=== PATIENT | female | born 1990 | race Caucasian/White ===

== ENCOUNTER 2016-07-01 19:49 | Emergency (ER) | payer MEDICAID, OTHER ==
[~2016-07-01] VITALS: Ht 154.9 cm; Wt 63.3 kg
[2016-07-01 19:57] VITALS: BP 114/77; PULSE 88; RESP 18; TEMP 97.8; O2SAT 88
[2016-07-01] MEDS ORDERED: CLON0.5T PO ×2 (20:30→21:38)
[2016-07-01] MEDS ORDERED: OMEP40CA2 PO (20:30)
[2016-07-01] MEDS ORDERED: MONT10TA2 PO (20:30)
[2016-07-01] MEDS ORDERED: NIFE20 PO (20:30)
[2016-07-01] MEDS ORDERED: PLAQ200T PO (20:30)
[2016-07-01] MEDS ORDERED: ZYRT10CA PO (20:30)
--- NOTE | 2016-07-01 21:13 | PD ---
HPI Chief Complaint: Medication Refill Request Time Seen by Provider: 21:13 Travel History International Travel<30 days: No Contact w/Intl Traveler<30days: No Traveled to known affect area: No History of Present Illness HPI 25-year-old female with history of lupus and bipolar presents to the ED for medication refill. Patient states that she's been out of her clonazepam for the last 8 days. She states that she's prescribed 5 mg at bedtime. States that she is visiting from [place], but unable to get her PCP to fill her prescription. PFSH Past Medical History ADHD: No Arthritis: Yes Cancer: No Diabetes: No Diminished Hearing: No Fibromyalgia: Yes Medical other: Yes (LUPUS) Psychiatric: Yes (BIPOLAR BY HX) Migraines: No Seizures: No Thyroid Disease: No Ulcer: No Tetanus Vaccination: < 5 Years Influenza Vaccination: Yes ?: Unknown LMP: 06 11 16 Past Surgical History Appendectomy: No Cholecystectomy: No Social History Alcohol Use: Yes (TRIED THREE TIMES) Tobacco Use: No Substance Use: No Allergies-Medications (Allergen,Severity, Reaction): Coded Allergies: Cola Drinks (Verified Allergy, Mild, 02/02/03) Colchicine (Verified Allergy, Unknown, SWELLING, HIVES, 07/01/16) Cymbalta (Verified Allergy, Unknown, SWELLING, HIVES, 07/01/16) Lyrica (Verified Allergy, Unknown, FEEL TERRIBLE, 07/01/16) Uncoded Allergies: COLADRINKS (Allergy, Mild, CAUSES NAUSEA, 02/02/03) ANTIBIOTICS ( ALL EXCEPT BACTRIM ) PER PT (Allergy, Unknown, HIVES, 07/01/16 ) Reported Meds & Prescriptions Reported Meds & Active Scripts Active Clonazepam 0.5 Mg Tab 0.5 Mg PO HS Reported Clonazepam 0.5 Mg Tab 0.5 Mg PO HS Singulair (Montelukast Sodium) 10 Mg Tab 10 Mg PO HS Omeprazole 40 Mg Cap 40 Mg PO DAILY Zyrtec Allergy (Cetirizine HCl) 10 Mg Cap 10 Mg PO DAILY Nifedipine 20 Mg Cap 30 Mg PO DAILY Plaquenil (Hydroxychloroquine Sulfate) 200 Mg Tab 200 Mg PO DAILY Take with food Physical Exam Narrative GENERAL: Well-nourished, well-developed disheveled white female in no acute distress. SKIN: Warm and dry. HEAD: Normocephalic. EYES: No scleral icterus. No injection or drainage. NECK: Supple, trachea midline. No JVD or lymphadenopathy. CARDIOVASCULAR: Regular rate and rhythm without murmurs, gallops, or rubs. RESPIRATORY: Breath sounds clear and equal bilaterally. No accessory muscle use. GASTROINTESTINAL: Abdomen soft, non-tender, nondistended. Active bowel sounds MUSCULOSKELETAL: No cyanosis, or edema. 5/5 strength in bilateral lower extremities. BACK: Nontender without obvious deformity. No CVA tenderness. Data Data Last Documented VS Vital Signs Date Time Temp Pulse Resp B/P Pulse Ox O2 Delivery O2 Flow Rate FiO2 07/01/16 19:57 97.8 88 18 114/77 88 Orders Clonazepam (Klonopin) (07/01/16 21:45) [facility] Medical Decision Making Medical Screen Exam Complete: Yes Emergency Medical Condition: Yes Differential Diagnosis Anxiety versus medication refill versus drug-seeking behavior versus malingering versus other Narrative Course 25-year-old female with history of lupus and bipolar presents to the ED for medication refill. Patient states that she's been out of her clonazepam for the last 8 days. She states that she's prescribed 0.5 mg at bedtime. States that she is visiting from [place], but unable to get her PCP to fill her prescription. Vitals reviewed. Physical exam is unremarkable. No record available on [facility]. I discussed the patient with Dr. Diaz who agrees with my plan to treat the patient and prescribe a short course 0.5 clonazepam. Patient was instructed to follow-up with her primary care doctor or credit reporting clerk for further refills. She indicated understanding of instructions and is amenable to the plan of care. She is stable and discharged home. Diagnosis Primary Impression: Medication refill Referrals: Primary Care Physician Ramp Agent Patient Instructions: General Instructions, Medication Refill, ED Med/Other Pt SpecificInfo: Prescription(s) given Scripts Clonazepam 0.5 Mg Tab0.5 Mg PO HS #6 TAB Ref 0 Prov:Rashaun Diaz MD 07/01/16 Disposition: 01 DISCHARGE HOME Condition: Stable Carolyne Gore Jul 01, 2016 21:13
[2016-07-01] MEDS ORDERED: clonazePAM 0.5 MG TAB PO ONE (21:45)
== END 2016-07-01 22:24 | disposition home or self-care (01) ==
LOC: PHED 19:49 → PHEFT 22:24
DX: M79.7 Fibromyalgia (principal); F31.9 Bipolar disorder, unspecified; M32.9 Systemic lupus erythematosus, unspecified; Z76.0 Encounter for issue of repeat prescription
CPT/HCPCS: 99281

== ENCOUNTER 2017-01-18 18:53 | Emergency (ER) | payer SELFPAY ==
[~2017-01-18] VITALS: Ht 154.9 cm; Wt 66.0 kg
[~2017-01-18 18:53] MED LIST: CLON0.5T PO; MONT10TA2 PO; NIFE20 PO; OMEP40CA2 PO; PLAQ200T PO; ZYRT10CA PO
[2017-01-18 18:58] VITALS: BP 89/55; PULSE 98; RESP 16; TEMP 97.9; O2SAT 96
[2017-01-18] MEDS ORDERED: LIDOCAINE HCL 1% PF 30 ML VIAL ONE (19:40)
[2017-01-18] MEDS ORDERED: LIDOCAINE HCL 1% 20 ML VIAL INFIL ONE (19:45)
[2017-01-18] MEDS ORDERED: TETANUS/DIPHTHERIA TOXOID ADULT 0.5 ML VIAL IM ONE (19:45)
[2017-01-18] MEDS ORDERED: ACETAMINOPHEN/HYDROcodone 325 MG/5 MG TAB PO ONE (20:00)
--- NOTE | 2017-01-18 20:00 | PD ---
HPI . Finger laceration Chief Complaint: Injury Time Seen by Provider: 19:32 Travel History International Travel<30 days: No Contact w/Intl Traveler<30days: No Traveled to known affect area: No History of Present Illness HPI This patient presents with a finger laceration, left index finger. She slammed it in a car door. Her last tetanus shot was 6 years ago. She rates her pain 9/ 10. No modifying factors. PFSH Past Medical History ADHD: No Arthritis: Yes Cancer: No Diabetes: No Diminished Hearing: No Fibromyalgia: Yes Psychiatric: Yes (BIPOLAR BY HX) Migraines: No Seizures: No Thyroid Disease: No Ulcer: No ?: Not LMP: 01/14/17 Past Surgical History Appendectomy: No Cholecystectomy: No Social History Alcohol Use: Yes (TRIED THREE TIMES) Tobacco Use: No Substance Use: No Allergies-Medications (Allergen,Severity, Reaction): Coded Allergies: Penicillins (Verified Allergy, Severe, Anaphylaxis, 01/18/17) azithromycin (Verified Allergy, Severe, Anaphylaxis, 01/18/17) 173 (Verified Allergy, Mild, 01/18/17) colchicine (Unverified Allergy, Unknown, SWELLING, HIVES, 01/18/17) duloxetine (Unverified Allergy, Unknown, SWELLING, HIVES, 01/18/17) pregabalin (Unverified Allergy, Unknown, FEEL TERRIBLE, 01/18/17) Uncoded Allergies: COLADRINKS (Allergy, Mild, CAUSES NAUSEA, 02/02/03) ANTIBIOTICS ( ALL EXCEPT BACTRIM ) PER PT (Allergy, Unknown, HIVES, 07/01/16 ) Reported Meds & Prescriptions Reported Meds & Active Scripts Active Clonazepam 0.5 Mg Tab 0.5 Mg PO HS Reported Clonazepam 0.5 Mg Tab 0.5 Mg PO HS Singulair (Montelukast Sodium) 10 Mg Tab 10 Mg PO HS Omeprazole 40 Mg Cap 40 Mg PO DAILY Zyrtec Allergy (Cetirizine HCl) 10 Mg Cap 10 Mg PO DAILY Nifedipine 20 Mg Cap 30 Mg PO DAILY Plaquenil (Hydroxychloroquine Sulfate) 200 Mg Tab 200 Mg PO DAILY Take with food Review of Systems Except as stated in HPI: all other systems reviewed are Neg Musculoskeletal: Positive: Pain (left index finger) Skin: Positive Other (laceration of left index finger) Physical Exam Narrative GENERAL: The patient is awake and alert and does not appear to be in any distress. SKIN: She does have a laceration on the distal aspect of the left index finger. HEAD: Normocephalic/atraumatic. EYES: Pupils are equal. Extraocular movements are intact. NECK: Full range of motion with no apparent pain. CARDIOVASCULAR: Regular rate and rhythm. RESPIRATORY: Nonlabored respirations. MUSCULOSKELETAL: No deformity of the left index finger. NEUROLOGICAL: Neurologically intact. PSYCHIATRIC: Appropriate mood and affect. Data Data Last Documented VS Vital Signs Date Time Temp Pulse Resp B/P (MAP) Pulse Ox O2 Delivery O2 Flow Rate FiO2 01/18/17 18:58 97.9 98 16 89/55 (66) 96 Room Air Orders Orders Lidocaine 1% Inj (Xylocaine 1% Inj) (01/18/17 19:45) Tetanus/Diphtheria Tox Adult (Tetanus/Di (01/18/17 19:45) Lidocaine Pf 1% Inj (Xylocaine-Mpf 1% In (01/18/17 19:40) Finger ([id number]) (01/18/17 20:00) Acetamin-Hydrocod 325-5 Mg ([place] 5-325 (01/18/17 20:00) MDM Medical Decision Making Medical Screen Exam Complete: Yes Emergency Medical Condition: Yes Differential Diagnosis Differential diagnosis includes but is not limited to skin laceration, muscular laceration, tendon laceration, neurovascular laceration. Narrative Course This patient presents with a lacerated index finger secondary to a car door slamming on her finger. The laceration will be repaired by one of my assistants. An x-ray will be obtained to rule out fracture. Diagnosis Primary Impression: Finger laceration Qualified Codes: S61.211A - Laceration without foreign body of left index finger without damage to nail, initial encounter Patient Instructions: Finger Laceration (ED), General Instructions Disposition: 01 DISCHARGE HOME Condition: Stable Rosetta Boone MD Jan 18, 2017 20:00
--- NOTE | 2017-01-18 20:10 | PD ---
Physical Exam Date Seen by Provider: Jan 18, 2017 Time Seen by Provider: 20:09 Narrative For full history and physical examination please see previous provider's note. I was asked to repair laceration to patient's left second fingertip. Data Data Last Documented VS Vital Signs Date Time Temp Pulse Resp B/P (MAP) Pulse Ox O2 Delivery O2 Flow Rate FiO2 01/18/17 18:58 97.9 98 16 89/55 (66) 96 Room Air Orders Orders Lidocaine 1% Inj (Xylocaine 1% Inj) (01/18/17 19:45) Tetanus/Diphtheria Tox Adult (Tetanus/Di (01/18/17 19:45) Lidocaine Pf 1% Inj (Xylocaine-Mpf 1% In (01/18/17 19:40) Finger ([id number]) (01/18/17 20:00) Acetamin-Hydrocod 325-5 Mg ([place] 5-325 (01/18/17 20:00) MDM Medical Record Reviewed: Yes Supervised Visit with RAE: Yes Procedures Procedure Narrative LACERATION LOCATION: Left second finger pad LENGTH: 1 CM NUMBER OF STITCHES/MELLO: 2 stitches REPAIR: The area of the laceration was prepped with Betadine and sterilely draped. The laceration was infiltrated with 1% lidocaine. The wound was copiously irrigated and explored without evidence of foreign body, tendon injury or neurovascular injury. The wound was closed using 5-0 Ethilon. This was a 1 layer repair. A sterile dressing was applied. The patient was advised to keep the dressing clean and dry. Patient tolerated the procedure well. Dinora Stephenson Jan 18, 2017 20:10
--- NOTE | 2017-01-18 20:52 | RADRPT ---
EXAM DATE/TIME: 01/18/2017 20:32 [facility] COMPARISON: No previous studies available for comparison. INDICATIONS : Slammed 2nd left finger in car door. Pain and swelling. MEDICAL HISTORY : None. SURGICAL HISTORY : None. ENCOUNTER: Initial ACUITY: 1 day PAIN SCORE: 7/10 LOCATION: Left upper extremity FINDINGS: There is a slightly displaced fracture through the tuft of the second distal phalanx. Mild soft tissu e swelling. CONCLUSION: Second distal phalangeal tuft fracture. Alok Wu MD on January 18, 2017 at 20:50 Board Certified Radiologist. This report was verified electronically.
[2017-01-18] MEDS ORDERED: NORC5TAB PO (20:59)
[2017-01-18] MEDS ORDERED: BACT800T5 PO (20:59)
== END 2017-01-18 21:11 | disposition home or self-care (01) ==
LOC: NEPD 18:53
DX: S61.211A Laceration without foreign body of left index finger without damage to nail, initial encounter (principal); W23.0XXA Caught, crushed, jammed, or pinched between moving objects, initial encounter; Z23 Encounter for immunization
CPT/HCPCS: 12001; 73140; 90471; 90714